=== PATIENT | male | born 1995 | race African-American/Black ===

== ENCOUNTER 2018-01-06 09:41 | Emergency (ER) | payer SELFPAY ==
[~2018-01-06] VITALS: Ht 167.6 cm; Wt 5.0 kg
[2018-01-06 09:53] VITALS: BP 122/76
== END 2018-01-06 11:09 | disposition home or self-care (01) ==
LOC: ER 09:41
DX: K13.0 Diseases of lips (principal); F12.10 Cannabis abuse, uncomplicated; Z93.0 Tracheostomy status
CPT/HCPCS: 99283

== ENCOUNTER 2024-02-16 20:39 | Emergency (ER) | payer MEDICAID ==
[~2024-02-16] VITALS: Ht 167.6 cm; Wt 73.0 kg
[2024-02-16 21:07] VITALS: O2SAT 99
[2024-02-16] MEDS: HYDROCODONE/ACETAMINOPHEN 5/325MG TABLET PO ONE (22:20)
[2024-02-16 22:46] VITALS: TEMP 97.7
[2024-02-16 23:15] VITALS: BP 129/76; PULSE 84; RESP 16
[2024-02-16] MEDS: KETOROLAC 30MG/ML VIAL IM ONE (23:15)
[2024-02-16] MEDS ORDERED: IBUP-2029 MT (23:42)
== END 2024-02-17 02:45 | disposition home or self-care (01) ==
LOC: ER 20:39
DX: M25.461 Effusion, right knee (principal); F12.10 Cannabis abuse, uncomplicated; Z93.0 Tracheostomy status; W18.30XA Fall on same level, unspecified, initial encounter; Y93.89 Activity, other specified; Y92.89 Other specified places as the place of occurrence of the external cause; Y99.8 Other external cause status
CPT/HCPCS: 99284; 29505; 73560; 73590; 73610; 96372; J1885